=== PATIENT | female | born 1985 | race Caucasian/White ===

== ENCOUNTER 2020-04-06 19:59 | Emergency (ER) | payer OTHER ==
[~2020-04-06] VITALS: Ht 167.6 cm; Wt 90.7 kg
[~2020-04-06 19:59] MED LIST: AMBIEN 5 MG TABL5 M1; IRON325 M1 PO; LANOLIN56 GM; PRENATAL PO; TUCKS1 EAC1 TP
[2020-04-06] MEDS ORDERED: NORCO 5-325 TA1 EAC2 PO (22:01)
[2020-04-06 22:19] VITALS: BP 133/79
== END 2020-04-06 22:20 | disposition home or self-care (01) ==
LOC: ER 19:59
DX: M25.552 Pain in left hip (principal); F17.210 Nicotine dependence, cigarettes, uncomplicated; Z88.8 Allergy status to other drugs, medicaments and biological substances; X50.0XXA Overexertion from strenuous movement or load, initial encounter; Y93.89 Activity, other specified; Y92.128 Other place in nursing home as the place of occurrence of the external cause; Y99.8 Other external cause status